=== PATIENT | female | born 1960 | race Caucasian/White ===

== ENCOUNTER 2016-06-10 07:02 | Inpatient (IN) | payer MEDICARE, OTHER ==
[~2016-06-10] VITALS: Ht 160 cm; Wt 74.2 kg
[2016-06-10] VITALS (8 sets, daily range): BP systolic 73–135; BP diastolic 35–78
[~2016-06-10 07:02] MED LIST: ASPI-496 PO; BACITRACIN 50,000 UNIT ONE; CLON-365 PO; COLC0.6T37 PO; CYCL1DRO EACHEYE; DIVA250T4 PO; DULO60CA7 PO; EPINEPHRINE 1 MG/ML, 1ML ONE; FLUO20TA25 PO; HYDR200T PO; KETOROLAC 60 MG/2 ML ONE; LEVO75TA33 PO; LOTE3.5O EACHEYE; PREG300C PO; RABE20TA26 PO; ROPIvacaine/PF 0.2%, 20 ML ONE; SODIUM CHLORIDE 0.9% 50 ML ONE; TRAM50TA2 PO; TRANEXAMIC ACID 100 MG/ML, 10ML ONE; TRAZ50TA18 PO
[2016-06-10] MEDS ORDERED: VANCOMYCIN PER PHARMACY MC STA (07:54)
[2016-06-10] MEDS ORDERED: LACTATED RINGERS 1,000 ML IV SCH (08:12)
[2016-06-10] MEDS ORDERED: FENTANYL PF 100 MCG/2ML ONE (08:25)
[2016-06-10] MEDS ORDERED: MIDAZOLAM 1 MG/ML, 2ML ONE (08:26)
[2016-06-10] MEDS ORDERED: LIDOCAINE 1%, 2ML SQ PRN (08:30)
[2016-06-10] MEDS ORDERED: OxyconTIN ER 10 MG TAB.ER PO ONE (09:00)
[2016-06-10] MEDS ORDERED: VANCOMYCIN 1,300 MG in SODIUM CHLORIDE 0.9% 250 ML IV ONE (09:00)
[2016-06-10] MEDS ORDERED: EPHEDRINE 50 MG/ML, 1ML ONE (09:35)
[2016-06-10] MEDS ORDERED: PROPOFOL 10 MG/ML, 20ML ONE (09:35)
[2016-06-10] MEDS ORDERED: ONDANSETRON 2MG/ML, 2ML ONE (09:35)
[2016-06-10] MEDS ORDERED: CEFAZOLIN 1,000 MG ONE (09:35)
[2016-06-10] MEDS ORDERED: PHENYLEPHRINE 10 MG/ML ONE (09:35)
[2016-06-10] MEDS ORDERED: PROMETHAZINE 25 MG/ML, 1ML IV PRN (10:30)
[2016-06-10] MEDS ORDERED: OXYcodone 5 MG/5 ML ORAL.SOL UDC PO PRN (10:30)
[2016-06-10] MEDS ORDERED: HYDROmorphone 1 MG/ML, 1ML IV PRN (10:30)
[2016-06-10] MEDS ORDERED: ACETAMINOPHEN 325 MG TABLET PO PRN (10:30)
[2016-06-10] MEDS ORDERED: FENTANYL PF 100 MCG/2ML IV PRN (10:30)
[2016-06-10] MEDS ORDERED: D5%-0.45% NACL 1,000 ML IV SCH (11:03)
[2016-06-10] MEDS ORDERED: HYDROcodone/APAP 5/325 TABLET PO PRN (11:30)
[2016-06-10] MEDS ORDERED: DIAZEPAM 5 MG TABLET PO PRN (11:30)
[2016-06-10] MEDS ORDERED: PROMETHAZINE 25 MG/ML, 1ML IM PRN (11:30)
[2016-06-10] MEDS ORDERED: SCOPOLAMINE PATCH, 1.5MG PATCH.TD72 TD SCH (11:30)
[2016-06-10] MEDS ORDERED: ONDANSETRON 2MG/ML, 2ML IV PRN (11:30)
[2016-06-10] MEDS ORDERED: LORazepam 1MG TABLET PO PRN (11:30)
[2016-06-10] MEDS ORDERED: SENNA/DOCUSATE TABLET PO PRN (11:30)
[2016-06-10] MEDS ORDERED: ALUMINUM/MAG/SIMETHICONE 30 ML UDC PO PRN (11:30)
[2016-06-10] MEDS ORDERED: DIPHENHYDRAMINE 25 MG CAPSULE PO PRN (11:30)
[2016-06-10] MEDS ORDERED: ACETAMINOPHEN 650 MG/20.3 ML UDC PO PRN (11:30)
[2016-06-10] MEDS ORDERED: ONDANSETRON 4 MG TABLET PO PRN (11:30)
[2016-06-10] MEDS ORDERED: BISACODYL 10 MG SUPP PR PRN (11:30)
[2016-06-10] MEDS ORDERED: PROMETHAZINE 12.5 MG SUPP PR PRN (11:30)
[2016-06-10 12:19] LABS: HEMOGLOBIN 11.5 g/dL (11.7-16.4)
[2016-06-10] MEDS ORDERED: OXYcodone 5 MG/5 ML ORAL.SOL UDC ONE (12:22)
[2016-06-10] MEDS: HYDROmorphone 1 MG/ML, 1ML IV PRN ×2 (14:24→20:36)
[2016-06-10] MEDS: DIVALPROEX 250 MG TABLET.DR PO SCH ×2 (16:13→20:42)
[2016-06-10] MEDS: OMEPRAZOLE 20 MG CAPSULE.DR PO SCH (16:13)
[2016-06-10] MEDS ORDERED: SODIUM CHLORIDE 0.9%, 500ML IVBOLUS ONE ×2 (16:30→19:30)
[2016-06-10] MEDS: CEFAZOLIN PMX 1GM/50ML 50 ML IVPB SCH (17:25)
[2016-06-10] MEDS: OXYcodone IR 5MG TABLET PO PRN ×2 (18:23→22:52)
[2016-06-10] MEDS: LOTEPREDNOL 0.5% OP SCH (20:30)
[2016-06-10] MEDS: CYCLOSPORINE EYE OP SCH (20:31)
[2016-06-10] MEDS: FLUOXETINE 20 MG CAPSULE PO SCH (20:33)
[2016-06-10] MEDS: DOCUSATE 100 MG CAPSULE PO SCH (20:41)
[2016-06-10] MEDS: PREGABALIN 150 MG CAPSULE PO SCH (20:43)
[2016-06-10] MEDS: D5%-0.45% NACL 1,000 ML IV SCH (20:47)
[2016-06-10] MEDS: TRAZODONE 100MG TABLET PO SCH (21:33)
[2016-06-11] VITALS (12 sets, daily range): BP systolic 68–103; BP diastolic 39–64
[2016-06-11] MEDS: D5%-0.45% NACL 1,000 ML IV SCH ×2 (01:04→13:50)
[2016-06-11] MEDS: HYDROmorphone 1 MG/ML, 1ML IV PRN (01:12)
[2016-06-11] MEDS: CEFAZOLIN PMX 1GM/50ML 50 ML IVPB SCH (01:16)
[2016-06-11] MEDS: OXYcodone IR 5MG TABLET PO PRN ×5 (05:41→22:51)
[2016-06-11] MEDS: LEVOTHYROXINE 75 MCG TABLET PO SCH (05:42)
[2016-06-11] MEDS ORDERED: DEXAMETHASONE 4 MG/ML, 1ML IVPush SCH (06:00)
[2016-06-11 06:29] LABS: HEMOGLOBIN 10.1 g/dL (11.7-16.4)
[2016-06-11 06:31] LABS: BLOOD UREA NITROGEN 9 mg/dL (7-18)
[2016-06-11 06:44] LABS: ASPARTATE AMINO TRANSFERASE 23 U/L (15-37)
[2016-06-11 06:48] LABS: DIFF TOTAL CELLS COUNTED 100 CELL DIFF
[2016-06-11 06:50] LABS: VERIFY COUNTS? YES
[2016-06-11 06:59] LABS: OVALOCYTES 1+
[2016-06-11] MEDS: LOTEPREDNOL 0.5% OP SCH ×2 (09:00→20:06)
[2016-06-11] MEDS: CYCLOSPORINE EYE OP SCH ×2 (09:00→20:06)
[2016-06-11] MEDS: PREGABALIN 150 MG CAPSULE PO SCH ×2 (09:00→20:05)
[2016-06-11] MEDS: DULOXETINE 30 MG CAPSULE.DR PO SCH (09:21)
[2016-06-11] MEDS: HYDROXYCHLOROQUINE 200 MG TABLET PO SCH (09:21)
[2016-06-11] MEDS: DOCUSATE 100 MG CAPSULE PO SCH ×2 (09:21→20:03)
[2016-06-11] MEDS: FLUOXETINE 20 MG CAPSULE PO SCH ×2 (09:21→20:05)
[2016-06-11] MEDS: DIVALPROEX 250 MG TABLET.DR PO SCH ×3 (09:21→20:03)
[2016-06-11] MEDS: MULTIVITAMINS/MINERALS TABLET PO SCH (09:21)
[2016-06-11] MEDS: RIVAROXABAN 10 MG TABLET PO SCH (09:22)
[2016-06-11] MEDS: OMEPRAZOLE 20 MG CAPSULE.DR PO SCH ×2 (09:22→16:41)
[2016-06-11] MEDS: KETOROLAC 30 MG/1 ML IV SCH ×2 (11:40→20:03)
[2016-06-11] MEDS ORDERED: SODIUM CHLORIDE 0.9%, 250ML IVBOLUS ONE (14:30)
[2016-06-11] MEDS: TRAZODONE 100MG TABLET PO SCH (22:50)
[2016-06-12] MEDS: D5%-0.45% NACL 1,000 ML IV SCH (01:28)
[2016-06-12 02:50] VITALS: BP 89/60
[2016-06-12] MEDS: OXYcodone IR 5MG TABLET PO PRN ×3 (03:06→22:15)
[2016-06-12] MEDS: KETOROLAC 30 MG/1 ML IV SCH (04:01)
[2016-06-12 06:19] LABS: HEMOGLOBIN 8.9 g/dL (11.7-16.4)
[2016-06-12] MEDS: LEVOTHYROXINE 75 MCG TABLET PO SCH (06:34)
[2016-06-12 07:48] VITALS: BP 83/50
[2016-06-12] MEDS ORDERED: FLUD0.1T PO (09:24)
[2016-06-12] MEDS: CYCLOSPORINE EYE OP SCH ×2 (10:05→20:43)
[2016-06-12] MEDS: LOTEPREDNOL 0.5% OP SCH ×2 (10:05→20:43)
[2016-06-12] MEDS: OMEPRAZOLE 20 MG CAPSULE.DR PO SCH ×2 (10:05→17:05)
[2016-06-12] MEDS: DOCUSATE 100 MG CAPSULE PO SCH ×2 (10:05→20:50)
[2016-06-12] MEDS: FLUDROCORTISONE 0.1 MG TABLET PO SCH (10:06)
[2016-06-12] MEDS: DIVALPROEX 250 MG TABLET.DR PO SCH ×3 (10:06→20:50)
[2016-06-12] MEDS: DULOXETINE 30 MG CAPSULE.DR PO SCH (10:06)
[2016-06-12] MEDS: PREGABALIN 150 MG CAPSULE PO SCH ×2 (10:06→20:50)
[2016-06-12] MEDS: MULTIVITAMINS/MINERALS TABLET PO SCH (10:07)
[2016-06-12] MEDS: RIVAROXABAN 10 MG TABLET PO SCH (10:07)
[2016-06-12] MEDS: HYDROXYCHLOROQUINE 200 MG TABLET PO SCH (10:07)
[2016-06-12] MEDS: FLUOXETINE 20 MG CAPSULE PO SCH ×2 (10:07→20:50)
[2016-06-12 12:48] VITALS: BP 88/58
[2016-06-12] MEDS ORDERED: SODIUM CHLORIDE 0.9%, 500ML IVBOLUS ONE (14:30)
[2016-06-12 19:59] VITALS: BP 91/57
[2016-06-12 20:46] VITALS: BP 89/54
[2016-06-12 22:13] VITALS: BP 113/69
[2016-06-12] MEDS: TRAZODONE 100MG TABLET PO SCH (22:15)
[2016-06-13 00:01] VITALS: BP 101/52
[2016-06-13] MEDS: D5%-0.45% NACL 1,000 ML IV SCH ×2 (03:03→03:35)
[2016-06-13 03:49] VITALS: BP 80/51
[2016-06-13 06:03] LABS: HEMOGLOBIN 10.1 g/dL (11.7-16.4)
[2016-06-13] MEDS: LEVOTHYROXINE 75 MCG TABLET PO SCH (06:27)
[2016-06-13 06:50] VITALS: BP 112/69
[2016-06-13] MEDS: LOTEPREDNOL 0.5% OP SCH (08:14)
[2016-06-13] MEDS: CYCLOSPORINE EYE OP SCH (08:14)
[2016-06-13] MEDS: OMEPRAZOLE 20 MG CAPSULE.DR PO SCH (08:22)
[2016-06-13] MEDS: DOCUSATE 100 MG CAPSULE PO SCH (08:22)
[2016-06-13] MEDS: RIVAROXABAN 10 MG TABLET PO SCH (08:23)
[2016-06-13] MEDS: MULTIVITAMINS/MINERALS TABLET PO SCH (08:23)
[2016-06-13] MEDS: DIVALPROEX 250 MG TABLET.DR PO SCH (08:23)
[2016-06-13] MEDS: FLUOXETINE 20 MG CAPSULE PO SCH (08:23)
[2016-06-13] MEDS: PREGABALIN 150 MG CAPSULE PO SCH (08:23)
[2016-06-13] MEDS: HYDROXYCHLOROQUINE 200 MG TABLET PO SCH (08:23)
[2016-06-13] MEDS: DULOXETINE 30 MG CAPSULE.DR PO SCH (08:23)
[2016-06-13] MEDS: FLUDROCORTISONE 0.1 MG TABLET PO SCH (08:23)
[2016-06-13] MEDS ORDERED: RIVA10TA PO (09:31)
[2016-06-13] MEDS ORDERED: HYDR-3240 PO (09:33)
[2016-06-13] MEDS ORDERED: TRAM50TA2 PO (09:35)
[2016-06-13] MEDS ORDERED: DIAZ5TAB PO (09:37)
[2016-06-13] MEDS ORDERED: DOCU-30 PO (09:38)
== END 2016-06-13 10:00 | disposition home or self-care (01) | DRG 469 ==
LOC: ORIP 07:02 → 4NOR 12:41 → DCLOUNGE 06-13 09:28
PROVIDERS: ADMIT Orthopaedic Surgery; ATTEND Orthopaedic Surgery
PROC: 0SRB01Z Replacement of Left Hip Joint with Metal Synthetic Substitute, Open Approach (ICD-10-PCS; principal; 2016-06-10 09:45)
DX: M16.12 Unilateral primary osteoarthritis, left hip (principal); E43 Unspecified severe protein-calorie malnutrition; E03.9 Hypothyroidism, unspecified; F32.9 Major depressive disorder, single episode, unspecified; K22.4 Dyskinesia of esophagus; M06.9 Rheumatoid arthritis, unspecified; I10 Essential (primary) hypertension; G40.909 Epilepsy, unspecified, not intractable, without status epilepticus; Z81.8 Family history of other mental and behavioral disorders; Z88.2 Allergy status to sulfonamides; Z86.010 Personal history of colon polyps; I95.1 Orthostatic hypotension
CPT/HCPCS: 36415; 72170; 80053; 83735; 84439; 84443; 85014; 85018; 85025; 86850; 86900; C1713; J0171; J0690; J1100; J1170; J1885; J2250; J2405; J2704; J2795; J3010; J3370; Q0162; C1776; J2370; J7040; J7050

== ENCOUNTER → 2017-04-08 | Outpatient (CLI) | payer MEDICARE, OTHER ==
[~2017-04-08] MED LIST changes: -BACITRACIN 50,000 UNIT ONE; +DIAZ5TAB PO; +DOCU-131 PO; -EPINEPHRINE 1 MG/ML, 1ML ONE; +FLUD0.1T PO; +HYDR-3240 PO; -KETOROLAC 60 MG/2 ML ONE; -LEVO75TA33 PO; +LEVO75TA59 PO; +RIVA10TA PO; -ROPIvacaine/PF 0.2%, 20 ML ONE; -SODIUM CHLORIDE 0.9% 50 ML ONE; -TRANEXAMIC ACID 100 MG/ML, 10ML ONE
== END | disposition home or self-care (01) ==
LOC: CARD 08:04
PROVIDERS: ATTEND Psychiatry & Neurology Neurology
DX: G40.209 Localization-related (focal) (partial) symptomatic epilepsy and epileptic syndromes with complex partial seizures, not intractable, without status epilepticus (principal)
CPT/HCPCS: 95819